=== PATIENT | female | born 1945 | race Caucasian/White ===

== ENCOUNTER 2021-08-08 11:20 | Emergency (ER) | payer BC, MEDICARE ==
[~2021-08-08] VITALS: Ht 147.3 cm; Wt 64.0 kg
[2021-08-08 11:26] VITALS: BP 133/72
[2021-08-08] MEDS ORDERED: TDAP [DIPH/PERTUSSIS/TET] 0.5 ML VIAL IM ONE ×2 (12:00→12:19)
[2021-08-08] MEDS ORDERED: LIDOCAINE HCL/MPF 1% 30 ML VIAL IJ ONE (12:30)
--- NOTE | 2021-08-08 13:23 | NUR ---
Patient discharged to home in stable condition. Written and verbal after care instructions given. Patient verbalizes understanding of instruction.
== END 2021-08-08 14:00 | disposition home or self-care (01) ==
LOC: ER 11:22
DX: S81.012A Laceration without foreign body, left knee, initial encounter (principal); S00.33XA Contusion of nose, initial encounter; S09.8XXA Other specified injuries of head, initial encounter; I10 Essential (primary) hypertension; Z88.0 Allergy status to penicillin; Z60.2 Problems related to living alone; W18.39XA Other fall on same level, initial encounter; Y93.89 Activity, other specified; Y92.89 Other specified places as the place of occurrence of the external cause; Y99.8 Other external cause status
CPT/HCPCS: 12002; 70450; 70486; 73700; 90471; 90715; 99284; A6403; J3490

== ENCOUNTER 2021-08-10 11:07 | Emergency (ER) | payer BC ==
[~2021-08-10] VITALS: Ht 162.6 cm; Wt 61.2 kg
[2021-08-10 11:15] VITALS: BP 124/84
--- NOTE | 2021-08-10 12:13 | NUR ---
Patient discharged to home in stable condition. Written and verbal after care instructions given. Patient verbalizes understanding of instruction.
== END 2021-08-10 12:13 | disposition home or self-care (01) ==
LOC: ER 11:26
DX: Z48.817 Encounter for surgical aftercare following surgery on the skin and subcutaneous tissue (principal); I10 Essential (primary) hypertension; Z88.0 Allergy status to penicillin; Z60.2 Problems related to living alone

== ENCOUNTER 2021-08-18 13:03 | Emergency (ER) | payer BC ==
[~2021-08-18] VITALS: Ht 147.3 cm; Wt 63.5 kg
[2021-08-18 13:11] VITALS: BP 144/79
--- NOTE | 2021-08-18 13:13 | NUR ---
BIBS FOR SUTURE REMOVAL, L KNEE LAC REPAIRED 10 DAYS AGO. NO PAIN. NO S/S INFECTION NOTED. WILL CONTINUE TO MONITOR THE PATIENT.
[2021-08-18] MEDS ORDERED: BENZOIN COMPOUND TINCT 60 ML BOTTLE ONE (13:32)
== END 2021-08-18 13:46 | disposition home or self-care (01) ==
LOC: ER 13:05
DX: S81.012D Laceration without foreign body, left knee, subsequent encounter (principal); I10 Essential (primary) hypertension; Z88.0 Allergy status to penicillin; Z60.2 Problems related to living alone; X58.XXXD Exposure to other specified factors, subsequent encounter

== ENCOUNTER 2021-08-19 10:10 | Emergency (ER) | payer BC ==
[~2021-08-19] VITALS: Ht 147.3 cm; Wt 63.5 kg
[2021-08-19 10:22] VITALS: BP 134/77
--- NOTE | 2021-08-19 10:25 | NUR ---
BIBS FOR BLEEDING NOTED,SUTURES REMOVED YESTERDAY,STERI STRIP INTACT. NO BLEEDING AT THIS TIME. NO S/S INFECTION NOTED. WILL CONTINUE TO MONITOR THE PATIENT.
--- NOTE | 2021-08-19 11:10 | NUR ---
Patient discharged to home in stable condition. Written and verbal after care instructions given. Patient verbalizes understanding of instruction.
== END 2021-08-19 11:10 | disposition home or self-care (01) ==
LOC: ER 10:20
DX: S81.012D Laceration without foreign body, left knee, subsequent encounter (principal); I10 Essential (primary) hypertension; Z88.0 Allergy status to penicillin; Z60.2 Problems related to living alone; W01.0XXD Fall on same level from slipping, tripping and stumbling without subsequent striking against object, subsequent encounter

== ENCOUNTER 2021-08-25 12:51 | Emergency (ER) | payer BC ==
[~2021-08-25] VITALS: Ht 147.3 cm; Wt 64.0 kg
--- NOTE | 2021-08-25 13:00 | NUR ---
PAGED DR. OTERO
[2021-08-25 13:04] VITALS: BP 125/76
[2021-08-25] MEDS ORDERED: SULF1TAB48 PO (13:22)
[2021-08-25] MEDS ORDERED: LIDOCAINE 1%-EPI 1:100,000 20 ML VIAL TP ONE (13:30)
== END 2021-08-25 13:38 | disposition home or self-care (01) ==
LOC: ER 12:55
DX: S81.011A Laceration without foreign body, right knee, initial encounter (principal); I10 Essential (primary) hypertension; Z88.0 Allergy status to penicillin; Z60.2 Problems related to living alone; W22.8XXA Striking against or struck by other objects, initial encounter; Y93.89 Activity, other specified; Y92.89 Other specified places as the place of occurrence of the external cause; Y99.8 Other external cause status

== ENCOUNTER 2021-08-30 15:26 | Emergency (ER) | payer BC ==
[~2021-08-30] VITALS: Ht 149.9 cm; Wt 65.8 kg
[~2021-08-30 15:26] MED LIST: SULF1TAB48 PO
--- NOTE | 2021-08-30 15:26 | NUR ---
PT BIBRA 860 FROM HOME C/O L KNE, L HIP AND FACIAL PAIN S/P TRIP AND FALL. PT IS AAOX4, NOT IN RESPIRATORY DISTRESS, V/S STABLE, KEPT RESTED AND COMFORTABLE. WILL CONTINUE TO MONITOR.
--- NOTE | 2021-08-30 16:52 | NUR ---
PATIENT WAITING FOR SON TO PICK HER UP, ETA [id number]
--- NOTE | 2021-08-30 18:00 | NUR ---
Patient discharged to home in stable condition. Written and verbal after care instructions given. Patient verbalizes understanding of instruction.
[2021-08-30 18:35] VITALS: BP 124/70
== END 2021-08-30 18:35 | disposition home or self-care (01) ==
LOC: ER 15:27
DX: S00.83XA Contusion of other part of head, initial encounter (principal); W01.0XXA Fall on same level from slipping, tripping and stumbling without subsequent striking against object, initial encounter; Y93.89 Activity, other specified; Y92.89 Other specified places as the place of occurrence of the external cause; Y99.8 Other external cause status
CPT/HCPCS: 70486-TC